=== PATIENT | female | born 1945 | race Caucasian/White ===

== ENCOUNTER → 2023-09-21 14:14 | Outpatient (REF) | payer MEDICARE, SELFPAY | LOC: RAD 14:14 | PROVIDERS: ATTENDING PHYSICIAN Internal Medicine Cardiovascular Disease; FAMILY PHYSICIAN Internal Medicine | DX: I87.2 Venous insufficiency (chronic) (peripheral) (principal) | CPT/HCPCS: 93970 ==

== ENCOUNTER → 2023-11-19 11:20 | Outpatient (REF) | payer MEDICARE, SELFPAY ==
[2023-11-19 12:17] LABS: % Eosinophils 7.5 % (0-6); % Immature Granulocytes 0.3 % (0-0.5); % Lymphocytes 20.1 % (20.5-51.1); % Monocytes 9.4 % (1.7-9.3); % Neutrophils 61.7 % (42.2-75.2); Absolute Basophils 0.1 10^3/uL (0-0.2); Absolute Eosinophils 0.5 10^3/uL (0-0.7); Absolute Lymphocytes 1.4 10^3/uL (1.2-3.4); Absolute Monocytes 0.6 10^3/uL (0.1-0.6); Absolute Neutrophils 4.1 10^3/uL (1.4-6.5); Hematocrit 39.7 % (37.0-47.0); Hemoglobin 13.8 g/dL (12.0-16.0); Mean Corp Hgb Conc. 34.8 g/dL (33.0-37.0); Mean Corpuscular Hgb 30.3 pg (27.0-31.0); Mean Corpuscular Volume 87.1 fL (81.0-99.0); Mean Platelet Volume 9.6 fL (7.4-10.4); Nucleated Red Blood Cells % 0 %; Platelet Count 305 10^3/uL (130-400); Red Blood Cell Count 4.56 10^6/uL (4.20-5.40); Red Cell Dist. Width 12.7 % (11.5-14.5); White Blood Cell Count 6.7 10^3/uL (4.8-10.8)
[2023-11-19 12:59] LABS: Urine Albumin Negative (Neg - Trace); Urine Bilirubin Negative (Negative); Urine Character Clear (Clear); Urine Color Yellow; Urine Glucose Negative (Negative); Urine Ketone Negative (Negative); Urine Leukocyte Negative (Negative); Urine Nitrite Negative (Negative); Urine Occult Blood Trace (Negative); Urine Specific Gravity 1.005 (<1.030); Urine Urobilinogen Negative (Neg - 1+)
[2023-11-19 13:04] LABS: ALT (SGPT) 18 U/L (0-35); AST (SGOT) 24 U/L (14-36); Albumin 4.6 g/dl (3.5-5.0); Alkaline Phosphatase 70 U/L (38-126); Blood Urea Nitrogen 22 mg/dl (7-17); Calcium 10.2 mg/dl (8.4-10.2); Carbon Dioxide 29 mmol/L (22-30); Chloride 91 mmol/L (98-107); Glucose 97 mg/dl (70-99); Potassium 4.5 mmol/L (3.5-5.1); Sodium 133 mmol/L (135-145); Total Bilirubin 1.2 mg/dl (0.2-1.3); Total Protein 6.9 g/dl (6.3-8.2); eGFR > 60.00
[2023-11-19 13:21] LABS: Glycohemoglobin (HgbA1c) 5.5 % (4.0-5.6)
[2023-11-19 13:37] LABS: Vitamin B12 688 pg/ml (239-931)
[2023-11-19 14:57] LABS: Urine Red Blood Cell 0-2 /HPF (0-2); Urine White Cell 0-2 /HPF (0-5)
== END ==
LOC: REG 11:20
PROVIDERS: ATTENDING PHYSICIAN Student in an Organized Health Care Education/Training Program; FAMILY PHYSICIAN Internal Medicine
DX: R20.0 Anesthesia of skin (principal); Z00.00 Encounter for general adult medical examination without abnormal findings; N39.41 Urge incontinence; Z79.899 Other long term (current) drug therapy
CPT/HCPCS: 36415; 80053; 81003; 81015; 82607; 83036; 84443; 85025

== ENCOUNTER → 2024-05-02 11:29 | Outpatient (REF) | payer MEDICARE, SELFPAY | LOC: DHVS 11:29 | PROVIDERS: ATTENDING PHYSICIAN Surgery Vascular Surgery; FAMILY PHYSICIAN Internal Medicine | DX: I87.2 Venous insufficiency (chronic) (peripheral) (principal) | CPT/HCPCS: 93971 ==

== ENCOUNTER → 2024-05-11 10:31 | Outpatient (REF) | payer MEDICARE, SELFPAY | LOC: WDC 10:31 | PROVIDERS: ATTENDING PHYSICIAN Student in an Organized Health Care Education/Training Program | DX: Z12.31 Encounter for screening mammogram for malignant neoplasm of breast (principal) | CPT/HCPCS: 77063; 77067 ==

== ENCOUNTER → 2024-05-13 10:41 | Outpatient (REF) | payer MEDICARE, SELFPAY | LOC: RAD 10:41 | PROVIDERS: ATTENDING PHYSICIAN Student in an Organized Health Care Education/Training Program; FAMILY PHYSICIAN Internal Medicine | DX: N95.1 Menopausal and female climacteric states (principal); N95.9 Unspecified menopausal and perimenopausal disorder | CPT/HCPCS: 77080 ==

== ENCOUNTER 2024-06-20 09:30 | Day surgery (SDC) | payer MEDICARE, SELFPAY ==
[2024-06-16 09:23] VITALS: BMI 37.7
[2024-06-16 09:52] LABS: % Basophils 1.1 % (0-2); % Eosinophils 7.3 % (0-6); % Immature Granulocytes 0.3 % (0-0.5); % Neutrophils 64.3 % (42.2-75.2); Absolute Basophils 0.1 10^3/uL (0-0.2); Absolute Eosinophils 0.5 10^3/uL (0-0.7); Absolute Lymphocytes 1.3 10^3/uL (1.2-3.4); Absolute Monocytes 0.6 10^3/uL (0.1-0.6); Absolute Neutrophils 4.6 10^3/uL (1.4-6.5); Hematocrit 40.1 % (37.0-47.0); Mean Corp Hgb Conc. 34.9 g/dL (33.0-37.0); Mean Corpuscular Hgb 30.8 pg (27.0-31.0); Mean Corpuscular Volume 88.1 fL (81.0-99.0); Mean Platelet Volume 9.8 fL (7.4-10.4); Nucleated Red Blood Cells % 0 %; Platelet Count 308 10^3/uL (130-400); Red Blood Cell Count 4.55 10^6/uL (4.20-5.40); Red Cell Dist. Width 13.5 % (11.5-14.5); White Blood Cell Count 7.1 10^3/uL (4.8-10.8)
[2024-06-16 10:02] LABS: Blood Urea Nitrogen 17 mg/dl (7-17); Calcium 9.8 mg/dl (8.4-10.2); Carbon Dioxide 35 mmol/L (22-30); Chloride 95 mmol/L (98-107); Estimated Creatinine Clearance 68 ml/min; Glucose 97 mg/dl (70-99); INR 0.87; PT 12.3 Sec (11.4-14.6); Potassium 4.5 mmol/L (3.5-5.1); Sodium 135 mmol/L (135-145); eGFR > 60.00
[2024-06-16 10:03] LABS: APTT 28.8 Sec (23.4-35.0)
[2024-06-20] VITALS (9 sets, daily range): BP systolic 118–137; BP diastolic 63–79; BMI 37.8
[2024-06-20] MEDS: NSS 500 IV (10:31)
--- NOTE | 2024-06-20 11:15 | HP.FOC2 ---
Focused History & Physical
Chief Complaint
HPI:
Chief Complaint: Swelling BL LE
HPI / Indication for Planned Procedure: 79 yo female here for planned endovenous ablation with Dr Mackenzie today. Pt here at baseline health, no recent illnesses or traumas. Complains of BL LE swelling, R>L. Pt failed conservative management and
wishes to proceed with planned VIMAL to the right GSV today.
Relevant Past Medical History: Other (hemorrhoids, diverticulitis, HTN)
Review of Systems
Review of Pertinent Systems: All Systems Negative
Medication
See Medication form for detailed medications: Yes
Medication List (including Herbals & OTC):
glucosamine-chondroitin 250 mg-200 mg tablet (Osteo Bi-Flex) 2 tab PO HS 01/16/22
hydrochlorothiazide 25 mg tablet 25 mg PO HS 01/16/22
methylcellulose (laxative) 500 mg tablet (Citrucel) 1,000 mg PO HS 01/16/22
multivitamin 1 tab PO HS 01/16/22
paroxetine HCl 30 mg tablet 30 mg PO HS 01/16/22
acetaminophen 325 mg tablet 650 mg (2 x 325 mg) PO Q4HPRN PRN mild pain #1 tab 02/13/22
ibuprofen 200 mg tablet 400 mg (2 x 200 mg) PO Q6HPRN PRN moderate pain #1 tab 02/13/22
aspirin 81 mg capsule 81 mg PO HS 06/14/24
cetirizine 10 mg tablet (Zyrtec) 10 mg PO HS 06/14/24
turmeric root extract 500 mg tablet 1,500 mg PO HS 06/14/24
Medications Reviewed: Yes
Allergies and Reactions
Patient has Allergies: Yes
Noted Allergies and Reactions:
Allergy/AdvReac Type Severity Reaction Status Date / Time
latex Allergy Intermediate ERYTHEMA/IT Verified 06/20/24 09:46
JAVAD
Pertinent Physical Exam
All Other Systems: Negative
Head/Neck: Normal
Lungs: Normal
Heart: Normal
Extremities: Other (varicose veins)
Neurological: Normal
Diagnosis / Assessment
Varicose veins, right greater then left
Plan / Procedure
Planned right GSV endovenous ablation with Dr Mackenzie today.
Anesthesia/Sedation to be done by Anesthesia Provider: Yes
--- NOTE | 2024-06-20 11:35 | W.SUR.PREOP ---
Pre-Operative Surgical Note
-
I have examined this patient prior to the performance of the scheduled procedure.
The patient's condition is unchanged from the time of the current History and
Physical and the patient is able to undergo the scheduled procedure.
--- NOTE | 2024-06-20 13:22 | OR.RPT ---
Operative Report
Operative Report
Date of Operation: 06/20/2024
Pre Op Diagnosis: Right lower extremity symptomatic venous insufficiency
Post Op Diagnosis: Right lower extremity symptomatic venous insufficiency
Procedure: Radiofrequency endovenous ablation of right great saphenous vein (access site at the knee)
Surgeon: Hood Mackenzie III, MD
Nuclear Supervising Operator: Nita Lopez MD PGY1
Anesthesia: Sedation/local
Complications: None
Estimated Blood Loss: Less than 5 cc
History and Indications for Procedure: 79-year-old female with symptomatic right lower extremity venous insufficiency. Failed conservative strategies. Preoperative duplex imaging was reviewed. Patient was seen in the preoperative holding area and
the procedure plan was reviewed with her once again.
Procedure in Detail: Sari Bocanegra was correctly identified and placed supine on the operating table. After adequate induction of anesthesia the right leg was frog-legged and the table placed into a reverse Trendelenburg position. The right leg
was prepped and draped in the usual sterile fashion. A timeout procedure was performed with the nursing and anesthesia staff confirming the patient's identity as well as the nature and laterality of the procedure.
The right great saphenous vein was identified using ultrasound guidance. The vein was visualized from the proximal calf to the saphenofemoral junction. The vein was very small in the calf segment and no suitable site for access could be
identified. A suitable site for great saphenous vein access was identified at the knee level. Local anesthesia was infiltrated into the proposed puncture site. The right great saphenous vein was accessed with a micropuncture needle under
ultrasound guidance and the 7 [place] sheath was placed. Under direct ultrasound guidance the 60 cm length /7 cm tip radiofrequency ablation catheter was easily advanced to the proximal thigh where I then encountered some resistance. On ultrasound,
the vein diameter became small at this point and I could not advance the catheter beyond this. There was no reflux at the saphenofemoral junction on preoperative duplex evaluation and therefore I felt that ablating from this location back to the
vein access site would be appropriate. At this location the tip of the catheter was well away from the saphenofemoral junction. The position of the catheter was then externally marked using the white plastic doughnut on the catheter at the sheath
exit site. Using ultrasound guidance Tumescent solution was then infiltrated circumferentially around the great saphenous vein from the sheath insertion site to the tip of the catheter in the thigh. At this point the table was flattened out. The
right great saphenous vein was then ablated using 2 treatment cycles at each segment. Once completed the sheath and catheter were removed. Direct manual pressure was held on the puncture site and hemostasis was achieved. A sterile dressing was
applied.
The patient's leg was cleaned and then wrapped with an Madhu wrap from the toes to the proximal thigh. The patient tolerated the procedure well was taken to the recovery room in good condition.
Attestation: I was present and responsible for the entire procedure
Signed:
Hood Mackenzie III, MD
[facility]
[phone] (inng)
== END 2024-06-20 14:57 | disposition home or self-care (01) ==
LOC: CATH 09:30
PROVIDERS: ATTENDING PHYSICIAN Surgery Vascular Surgery; PRIMARYCARE PHYSICIAN Internal Medicine
DX: I87.2 Venous insufficiency (chronic) (peripheral) (principal); I10 Essential (primary) hypertension; Z79.82 Long term (current) use of aspirin
CPT/HCPCS: 36475; 36415; 80048; 85025; 85610; 85730; 93005

== ENCOUNTER → 2024-06-23 15:35 | Outpatient (REF) | payer MEDICARE, SELFPAY | LOC: RAD 15:35 | PROVIDERS: ATTENDING PHYSICIAN Surgery Vascular Surgery; FAMILY PHYSICIAN Internal Medicine | DX: I87.2 Venous insufficiency (chronic) (peripheral) (principal) | CPT/HCPCS: 93971 ==